=== PATIENT | female | born 1960 | race Caucasian/White ===

== ENCOUNTER 2021-03-05 03:44 | Emergency (ER) | payer BC ==
[~2021-03-05] VITALS: Ht 165.1 cm; Wt 90.1 kg
[2021-03-05 04:03] LABS: BILIRUBIN,URINE NEGATIVE (NEG); CLARITY,URINE CLEAR; COLOR,URINE YELLOW; NITRITE,URINE NEGATIVE (NEG); PROTEIN,URINE NEGATIVE (NEG-TRACE); UROBILINOGEN,URINE 0.2 mg/dL (0.2 mg/dL)
[2021-03-05 04:08] LABS: BACTERIA,URINE FEW /HPF (0-FEW); WBC,URINE 20-40 /HPF (0-4)
[2021-03-05] MEDS: IV NORMAL SALINE 1000ML BAG 1,000 ML IV ONE (04:20)
[2021-03-05 04:28] LABS: BASO # 0.1 x10^3/uL (0.0-0.2); BASO % 1 % (0-3); EOS # 0.2 x10^3/uL (0.0-0.7); EOS % 2 % (0-3); HEMATOCRIT 39.1 % (36.0-47.0); HEMOGLOBIN 13.3 g/dL (12.0-15.5); LYMPH # 2.3 x10^3/uL (1.0-4.8); LYMPH % 21 % (24-48); MEAN CORPUSCULAR HEMOGLOBIN 30 pg (25-35); MEAN CORPUSCULAR HGB CONC 34 g/dL (31-37); MEAN CORPUSCULAR VOLUME 89 fL (79-100); MONO # 0.6 x10^3/uL (0.0-1.1); MONO % 6 % (0-9); NEUT # 7.5 x10^3/uL (1.8-7.7); NEUT % 71 % (31-73); PLATELET COUNT 243 x10^3/uL (140-400); RED BLOOD COUNT 4.41 x10^6/uL (3.50-5.40); RED CELL DISTRIBUTION WIDTH 13.6 % (11.5-14.5); WHITE BLOOD COUNT 10.6 x10^3/uL (4.0-11.0)
[2021-03-05 04:36] LABS: CALCIUM 8.3 mg/dL (8.5-10.1); CREATININE 0.7 mg/dL (0.6-1.0); GFR 84.8; POTASSIUM 3.7 mmol/L (3.5-5.1)
[2021-03-05 04:42] LABS: ALBUMIN 3.6 g/dL (3.4-5.0); MAGNESIUM 1.8 mg/dL (1.8-2.4); TOTAL BILIRUBIN 0.3 mg/dL (0.2-1.0); TOTAL PROTEIN 7.1 g/dL (6.4-8.2)
--- NOTE | 2021-03-05 04:56 | PHYS DOC ---
Past Medical History Past Medical History: Hypothyroid, Other Additional Past Medical Histor: BRAIN ANEURYSM Past Surgical History: Other Additional Past Surgical Histo: BRAIN ANEURYSM, ROTATOR CUFF, BACK SX Smoking Status: Never Smoker Alcohol Use: None General Adult EDM: Chief Complaint: BLOODY STOOL HPI: HPI: 60-year-old female presents emergency department for diarrhea and hematochezia. The patient began having abdominal pain and diarrhea at 3 PM this afternoon. On initial first diarrhea she did not have blood in her stool but as she continued to have diarrhea she started to have more blood in her stool and on the toilet when she wiped. The patient is visiting her family from there in [place], she is originally from [place]. She came into the ER today because she was worried that the diarrhea and blood had not stopped it only got worse. The abdominal pain as well as gotten slightly worse but is very manageable. The patient is very pleasant and not in significant pain. The patient has a history of hemorrhoids from 30 years ago, but has not had any since then. Patient also has a history of brain aneurysms which have been repaired. Patient denies any straining during recent bowel movements. The patient also denies any changes of food recently or any sick contacts. The pain that the patient is experiencing her abdomen is mostly suprapubic but does slightly radiate to her left lower quadrant. Review of Systems: Review of Systems: Constitutional: Denies fever or chills Eyes: Denies redness or eye pain HENT: Denies nasal congestion or sore throat Respiratory: Denies cough or shortness of breath Cardiovascular: Denies chest pain or palpitations GI: Reports abdominal pain. Denies nausea, or vomiting : Denies dysuria or hematuria Musculoskeletal: Denies back pain or joint pain Integument: Denies rash or skin lesions Neurologic: Denies headache, focal weakness or sensory changes Complete systems were reviewed and found to be within normal limits, except as documented in this note. Heart Score: Risk Factors: Risk Factors: DM, Current or recent (<one month) smoker, HTN, HLP, family history of CAD, obesity. Risk Scores: Score 0 - 3: 2.5% MACE over next 6 weeks - Discharge Home Score 4 - 6: 20.3% MACE over next 6 weeks - Admit for Clinical Observation Score 7 - 10: 72.7% MACE over next 6 weeks - Early Invasive Strategies Current Medications: Current Medications Medications (Trade) Dose Ordered Sig/Kamryn Start Time Stop Time Status Last Admin Dose Admin Sodium Chloride 1,000 ml @ 1,000 mls/hr 1X ONCE 03/05/21 04:30 03/05/21 05:29 03/05/21 04:20 1,000 MLS/HR Allergies: Allergies: Allergies Coded Allergies Type Severity Reaction Last Updated Verified Penicillins Allergy Intermediate Rash 03/05/21 Yes erythromycin base Allergy Intermediate Rash 03/05/21 Yes Physical Exam: PE: Constitutional: Well developed, well nourished, no acute distress, non-toxic appearance HENT: Normocephalic, atraumatic Eyes: PERRL, EOMI, conjunctiva normal, no discharge Neck: Normal range of motion, no tenderness, supple Lungs & Thorax: No respiratory distress, equal chest rise and fall Abdomen: Soft, reports tenderness Skin: Warm, dry, no erythema, no rash Back: No tenderness, no CVA tenderness Extremities: No tenderness, ROM intact, no edema Neurologic: Alert and oriented X 3, normal motor function, normal sensory function, no focal deficits noted Psychologic: Affect normal, judgment normal Current Patient Data: Labs: Laboratory Tests Test 03/05/21 03:54 03/05/21 04:20 Urine Collection Type Unknown Urine Color Yellow Urine Clarity Clear Urine pH 6.0 (<5.0-8.0) Urine Specific [place] 1.010 (1.000-1.030) Urine Protein Negative mg/dL (NEG-TRACE) Urine Glucose (UA) Negative mg/dL (NEG) Urine Ketones (Stick) Negative mg/dL (NEG) Urine Blood Small (NEG) Urine Nitrite Negative (NEG) Urine Bilirubin Negative (NEG) Urine Urobilinogen Dipstick 0.2 mg/dL (0.2 mg/dL) Urine Leukocyte Esterase Large (NEG) Urine RBC 3-5 /HPF (0-2) Urine WBC 20-40 /HPF (0-4) Urine Squamous Epithelial Cells Many /LPF Urine Bacteria Few /HPF (0-FEW) Urine Mucus Slight /LPF White Blood Count 10.6 x10^3/uL (4.0-11.0) Red Blood Count 4.41 x10^6/uL (3.50-5.40) Hemoglobin 13.3 g/dL (12.0-15.5) Hematocrit 39.1 % (36.0-47.0) Mean Corpuscular Volume 89 fL (79-100) Mean Corpuscular Hemoglobin 30 pg (25-35) Mean Corpuscular Hemoglobin Concent 34 g/dL (31-37) Red Cell Distribution Width 13.6 % (11.5-14.5) Platelet Count 243 x10^3/uL (140-400) Neutrophils (%) (Auto) 71 % (31-73) Lymphocytes (%) (Auto) 21 % (24-48) L Monocytes (%) (Auto) 6 % (0-9) Eosinophils (%) (Auto) 2 % (0-3) Basophils (%) (Auto) 1 % (0-3) Neutrophils # (Auto) 7.5 x10^3/uL (1.8-7.7) Lymphocytes # (Auto) 2.3 x10^3/uL (1.0-4.8) Monocytes # (Auto) 0.6 x10^3/uL (0.0-1.1) Eosinophils # (Auto) 0.2 x10^3/uL (0.0-0.7) Basophils # (Auto) 0.1 x10^3/uL (0.0-0.2) Sodium Level 141 mmol/L (136-145) Potassium Level 3.7 mmol/L (3.5-5.1) Chloride Level 105 mmol/L (98-107) Carbon Dioxide Level 29 mmol/L (21-32) Anion Gap 7 (6-14) Blood Urea Nitrogen 16 mg/dL (7-20) Creatinine 0.7 mg/dL (0.6-1.0) Estimated GFR (Cockcroft-Gault) 84.8 BUN/Creatinine Ratio 23 (6-20) H Glucose Level 113 mg/dL (70-99) H Calcium Level 8.3 mg/dL (8.5-10.1) L Magnesium Level 1.8 mg/dL (1.8-2.4) Total Bilirubin 0.3 mg/dL (0.2-1.0) Aspartate Amino Transferase (AST) 13 U/L (15-37) L Alanine Aminotransferase (ALT) 23 U/L (14-59) Alkaline Phosphatase 78 U/L (46-116) Total Protein 7.1 g/dL (6.4-8.2) Albumin 3.6 g/dL (3.4-5.0) Albumin/Globulin Ratio 1.0 (1.0-1.7) Lipase 97 U/L (73-393) Laboratory Tests 03/05/21 04:20 Laboratory Tests 03/05/21 04:20 Vital Signs: Vital Signs Date Time Temp Pulse Resp B/P (MAP) Pulse Ox O2 Delivery O2 Flow Rate FiO2 03/05/21 04:19 98.0 85 16 184/97 (126) 97 Room Air 98.0 EKG: EKG: [] Radiology/Procedures: Radiology/Procedures: [] Course & Med Decision Making: Course & Med Decision Making 60-year-old female presents emergency department for abdominal pain, diarrhea, and small amounts of hematochezia. The patient states that she started to have diarrhea abdominal pain earlier this afternoon that progressively got gotten worse and began to also show ed red blood in the stool as well. The patient does have a history of hemorrhoids as well. The patient denies any straining or difficulty with bowel movements in the past week. The patient came in the emergency room because she was afraid that the bleeding diarrhea was getting worse. Patient's abdominal exam was benign besides slightly tender suprapubic region. Because patient's exam was benign but that she was still bleeding during defecation and still have abdominal pain we obtained a CT with contrast to assess for any diverticulitis, blockage, or hemorrhoids. Lab work was also obtained to evaluate for hematocrit and hemoglobin to see if the patient had lo ss potential blood. Lab work was also drawn to check basic hydration status. images from CT came back negative and patient was discharged home. She was instructed to follow-up with their primary care provider or to return emergency department if she began develop a fever or if the hematochezia got worse. Patient stable for discharge with outpatient follow-up with PCP. Discussed findings and plan with patient, who acknowledges understanding and agreement. Tutu Disclaimer: Tutu Disclaimer: This electronic medical record was generated, in whole or in part, using a voice recognition dictation system. Departure Departure Impression: Primary Impression: Colitis Additional Impression: Hematochezia Disposition: 01 DC HOME SELF CARE/HOMELESS Condition: STABLE Referrals: UNKNOWN PCP NAME (PCP) BOLIVAR SMITH MD Patient Instructions: Colitis, Rectal Bleeding, [id number] Additional Instructions: Increase fluid hydration. Scripts Hydrocortisone Acetate (ANUSOL-HC) 25 Mg Supp.rect 1 SUPP RC BID for 7 Days, #14 SUPP 0 Refills Prov: NISHA WERNER DO 03/05/21 Metronidazole (FLAGYL) 500 Mg Tablet 500 MG PO TID for 7 Days, #21 TAB Prov: NISHA WERNER DO 03/05/21 Ciprofloxacin Hcl (CIPRO) 500 Mg Tablet 1 TAB PO BID for 7 Days, #14 TAB Prov: NISHA WERNER DO 03/05/21 Hyoscyamine Sulfate (LEVSIN-SL) 0.125 Mg Tab.subl 0.125 MG SL Q4-6HRS PRN for PAIN, #20 TAB Prov: NISHA WERNER DO 03/05/21 NISHA WERNER DO Mar 05, 2021 04:56
[2021-03-05] MEDS ORDERED: CONTRAST GIVEN. MC PRN (05:15)
--- NOTE | 2021-03-05 05:21 | PHYS DOC ---
Past Medical History Past Medical History: Depression Additional Past Surgical Histo: 3 aneurysm operations in brain, spacer placed in vertebrae, rotator cuff Smoking Status: Never Smoker Alcohol Use: Rarely Drug Use: None General Adult EDM: Chief Complaint: BLOODY STOOL HPI: HPI: Patient is a 60-year-old female who presents to emergency department for blood in her stool and diarrhea since 3:00 this afternoon. Patient states that she started having diarrhea with scant amounts of ed red blood beginning around 3:00 and has gotten progressively worse since then with ed red blood seen on her stool and on the toilet when she wipes. Patient has a history of brain aneurysms and hemorrhoids in the past. Patient decided come emergency room because she was worried that the diarrhea and the blood was not stopping that it seemed like it was getting worse. The patient is not from [place] she is currently visiting her daughter here. The patient is pleasant and also complains of suprapubic abdominal pain with slight left lower quadrant abdominal pain as well. The patient denies any change in urination or any burning upon urination. The pain in her abdomen is an ache and is constant. The pain began at the same time she had diarrhea. The pain does not radiate anywhere else in her body. Patient denies any rectal or anal pain. Patient denies any nausea or vomiting. Patient has not taken any medication to try to improve her diarrhea. Review of Systems: Review of Systems: Constitutional: Denies fever or chills. [] Eyes: Denies change in visual acuity. [] HENT: Denies nasal congestion or sore throat. [] Respiratory: Denies cough or shortness of breath. [] Cardiovascular: Denies chest pain or edema. [] GI: Denies abdominal pain, nausea, vomiting, bloody stools or diarrhea. [] : Denies dysuria. [] Musculoskeletal: Denies back pain or joint pain. [] Integument: Denies rash. [] Neurologic: Denies headache, focal weakness or sensory changes. [] Endocrine: Denies polyuria or polydipsia. [] Lymphatic: Denies swollen glands. [] Psychiatric: Denies depression or anxiety. [] Heart Score: Risk Factors: Risk Factors: DM, Current or recent (<one month) smoker, HTN, HLP, family history of CAD, obesity. Risk Scores: Score 0 - 3: 2.5% MACE over next 6 weeks - Discharge Home Score 4 - 6: 20.3% MACE over next 6 weeks - Admit for Clinical Observation Score 7 - 10: 72.7% MACE over next 6 weeks - Early Invasive Strategies Current Medications: Current Medications Medications (Trade) Dose Ordered Sig/Kamryn Start Time Stop Time Status Last Admin Dose Admin Sodium Chloride 1,000 ml @ 1,000 mls/hr 1X ONCE 03/05/21 04:30 03/05/21 05:29 03/05/21 04:20 1,000 MLS/HR Allergies: Allergies: Allergies Coded Allergies Type Severity Reaction Last Updated Verified Penicillins Allergy Intermediate Rash 03/05/21 Yes erythromycin base Allergy Intermediate Rash 03/05/21 Yes Physical Exam: PE: Constitutional: Well developed, well nourished, no acute distress, non-toxic appearance. [] HENT: Normocephalic, atraumatic, bilateral external ears normal, oropharynx moist, no oral exudates, nose normal. [] Eyes: PERRLA, EOMI, conjunctiva normal, no discharge. [] Neck: Normal range of motion, no tenderness, supple, no stridor. [] Cardiovascular:Heart rate regular rhythm, no murmur [] Lungs & Thorax: Bilateral breath sounds clear to auscultation [] Abdomen: Bowel sounds normal, soft, no tenderness, no masses, no pulsatile masses. [] Skin: Warm, dry, no erythema, no rash. [] Back: No tenderness, no CVA tenderness. [] Extremities: No tenderness, no cyanosis, no clubbing, ROM intact, no edema. [] Neurologic: Alert and oriented X 3, normal motor function, normal sensory function, no focal deficits noted. [] Psychologic: Affect normal, judgement normal, mood normal. [] Current Patient Data: Labs: Laboratory Tests Test 03/05/21 03:54 Urine Collection Type Unknown Urine Color Yellow Urine Clarity Clear Urine pH 6.0 (<5.0-8.0) Urine Specific [place] 1.010 (1.000-1.030) Urine Protein Negative mg/dL (NEG-TRACE) Urine Glucose (UA) Negative mg/dL (NEG) Urine Ketones (Stick) Negative mg/dL (NEG) Urine Blood Small (NEG) Urine Nitrite Negative (NEG) Urine Bilirubin Negative (NEG) Urine Urobilinogen Dipstick 0.2 mg/dL (0.2 mg/dL) Urine Leukocyte Esterase Large (NEG) Urine RBC 3-5 /HPF (0-2) Urine WBC 20-40 /HPF (0-4) Urine Squamous Epithelial Cells Many /LPF Urine Bacteria Few /HPF (0-FEW) Urine Mucus Slight /LPF EKG: EKG: [] Radiology/Procedures: Radiology/Procedures: [] Course & Med Decision Making: Course & Med Decision Making Pertinent Labs and Imaging studies reviewed. (See chart for details) [] Dragon Disclaimer: Tutu Disclaimer: This electronic medical record was generated, in whole or in part, using a voice recognition dictation system. NISHA WERNER DO Mar 05, 2021 05:21
--- NOTE | 2021-03-05 05:34 | RAD ---
CT ABDOMEN+PELVIS W History: Reason: LLQ pain, hematochezia, OMNI 300, 75 ML IV / Spl. Instructions: / History: Technique: After the administration of intravenous contrast, CT imaging was performed of the abdomen and pelvis. Multiplanar images are reviewed. Exposure: One or more of the following individualized dose reduction techniques were utilized for thi s examination: 1. Automated exposure control 2. Adjustment of the mA and/or kV according to patient size 3. Use of iterative reconstruction technique. Comparison: None Findings: Lower chest: No consolidation or pleural effusion. Abdomen and pelvis: Right anterior hepatic lobe hypodensity, likely cyst measures 1 cm. The spleen, a drenal glands, pancreas and gallbladder are unremarkable. No biliary ductal dilatation. Patent portal veins. Lobulated appearance the kidneys. Nonobstructing bilateral intrarenal calculus. No hydronephrosis. Focal descending colonic wall thickening beginning at the splenic flexure. Mild adjacent fat infiltra tion. Normal appendix. No evidence of bowel obstruction. No pathologic lymphadenopathy. No ascites. Posterior uterine mass measures 2.8 x 2.5 cm. Additional uterine calcifications. Bones: L4-5 interspinous fixation. Impression: 1. Descending colonic wall thickening with minimal adjacent inflammatory changes, may represent coli tis. Recommend follow-up to ensure resolution and colonoscopy may be indicated after treatment. 2. Bilateral nonobstructing intrarenal calculi. 3. Posterior uterine mass, likely fibroid. Electronically signed by: Vernon Bates DO (03/05/2021 5:32 AM) [facility]
[2021-03-05] MEDS: IOHEXOL 300 MG/ML 100ML VIAL. IV ONE (05:59)
[2021-03-05 06:00] VITALS: BP 141/64
[2021-03-05] MEDS ORDERED: METR500T PO (06:09)
[2021-03-05] MEDS ORDERED: HYDR25SU18 RC (06:09)
[2021-03-05] MEDS ORDERED: HYOS0.1265 SL (06:09)
[2021-03-05] MEDS ORDERED: CIPR500T94 PO (06:09)
[2021-03-05] MEDS: HYOSCYAMINE 0.125 MG TAB.RAPDIS PO ONE (06:19)
[2021-03-05] MEDS: metroNIDAZOLE 500 MG TABLET PO ONE (06:19)
[2021-03-05] MEDS: CIPROFLOXACIN HCL 250 MG TABLET. PO ONE (06:19)
== END 2021-03-05 06:22 | disposition home or self-care (01) ==
LOC: ER 03:44
DX: K52.9 Noninfective gastroenteritis and colitis, unspecified (principal); K92.1 Melena; R10.9 Unspecified abdominal pain; E03.9 Hypothyroidism, unspecified; Z98.890 Other specified postprocedural states; Z88.0 Allergy status to penicillin; Z88.1 Allergy status to other antibiotic agents
CPT/HCPCS: 36415; 74177; 80053; 81001; 83605; 83690; 83735; 85025; 87086; 96360; 99285; J7030; Q9967